=== PATIENT | male | born 1935 | race Caucasian/White ===

== ENCOUNTER 2018-04-24 17:22 | Inpatient (IN) | END 2018-05-05 16:40 | disposition home health service (06) | DRG 163 ==

== ENCOUNTER 2018-07-13 13:41 | Inpatient (IN) | payer MEDICARE, OTHER ==
[~2018-07-13] VITALS: Ht 167.6 cm; Wt 60.0 kg
[~2018-07-13 13:41] MED LIST: AMLO5TAB4 PO; IBUP-1542 PO; OLME20TA20 PO; PARO40TA79 PO; TAMS0.4C2 PO; VILA20TA PO
[2018-07-13] MEDS ORDERED: ONDANSETRON 4 MG INJ IV PRN ×2 (17:00)
[2018-07-13] MEDS ORDERED: HYDROCODONE/APAP (5/325) TAB PO PRN (17:00)
[2018-07-13] MEDS ORDERED: LABETALOL HCL 20MG INJ IV PRN (17:00)
[2018-07-13] MEDS ORDERED: ACETAMINOPHEN 325 MG TAB PO PRN ×2 (17:00)
[2018-07-13] MEDS ORDERED: NACL 0.9% 3 ML SYG IV SCH (17:00)
--- NOTE | 2018-07-13 17:54 | HP ---
Date/Time of Note Date/Time of Note DATE: 07/13/18 TIME: 17:54 Assessment/Plan VTE Prophylaxis Pharmacological prophylaxis: other Lines/Catheters [facility]from [facility] Saline Lock Assessment/Plan Hospital Course Objective Physical exam General: Patient is laying in bed and answers questions appropriately Mentation: Patient is alert and oriented 4, Head: Normocephalic atraumatic Eyes: EOMI, pupils reactive to light Neck: Supple, nontender, midline Respiratory: Clear to auscultation bilaterally Cardiovascular: regular rate, no obvious murmurs Gastrointestinal: non-tender to palpation, bowel sounds heard. Neurological: Moves all extremities spontaneously Skin: No new skin lesions Assessment and plan Syncope -Acute on chronic -Since patient has not had imaging before, will order imaging here -CT head, within normal limits -MRI pending -Echo pending -Ultrasound carotid pending -EEG pending -Neurology consulted Hypertension -Continue home meds Mood disorder -Continue home meds Disposition -Neurology workup pending for syncope. Result Diagram: 07/13/18 1430 07/13/18 1430 Results 24hrs Laboratory Tests Test 07/13/18 14:30 White Blood Count 4.6 #L Red Blood Count 4.70 # Hemoglobin 12.6 #L Hematocrit 39.2 #L Mean Corpuscular Volume 83.4 Mean Corpuscular Hemoglobin 26.8 L Mean Corpuscular Hemoglobin Concent 32.1 Red Cell Distribution Width 17.8 #H Platelet Count 184 # Mean Platelet Volume 12.0 H Immature Granulocytes % 0.700 H Neutrophils % 64.0 Lymphocytes % 19.4 Monocytes % 10.7 Eosinophils % 4.8 Basophils % 0.4 Nucleated Red Blood Cells % 0.0 Immature Granulocytes # 0.030 Neutrophils # 2.9 Lymphocytes # 0.9 Monocytes # 0.5 Eosinophils # 0.2 Basophils # 0.0 Nucleated Red Blood Cells # 0.0 Urine Color YELLOW Urine Clarity CLEAR Urine pH 5.0 Urine Specific [place] 1.017 Urine Ketones NEGATIVE Urine Nitrite NEGATIVE Urine Bilirubin NEGATIVE Urine Urobilinogen 1+ H Urine Leukocyte Esterase NEGATIVE Urine Microscopic RBC 0 Urine Microscopic WBC 1 Urine Hemoglobin NEGATIVE Urine Glucose NEGATIVE Urine Total Protein 1+ H Sodium Level 139 Potassium Level 3.8 Chloride Level 106 Carbon Dioxide Level 23 Anion Gap 10 Blood Urea Nitrogen 17 Creatinine 0.89 Est Glomerular Filtrat Rate mL/min Glucose Level 173 Calcium Level 8.8 Troponin I < 0.012 HPI/ROS Admit Date/Time Admit Date/Time Hx of Present Illness Patient is a elderly male with past medical history significant for VATS decortication last year due to hemothorax due to fall, mood disorder, hypertension who presents to [facility] for multiple episodes of syncope. Patient's family is at bedside to help translate and states that for the past few months approximately 2-3 times a week, patient spontaneously passes out and in a few seconds regains consciousness. Patient has been to his primary care provider before however after a workup that did not include any head imaging, patient still had no answers. Patient states the most recent e vent was today for a few seconds, witnessed by who is also at bedside. Patient currently has no acute complaints and is in good spirits. Patient denies any chest pain, shortness of breath, headache, nausea, vomiting, abdominal pain, leg pain PMH/Family/Social Past Medical History Medications Current Medications Sodium Chloride 1,000 ml @ 60 mls/hr [id number] IV ; Start 07/13/18 at 16:50; Stop 07/15/18 at 02:09 IV Flush (NS 3 ml) 3 ml PER PROTOCOL IV ; Start 07/13/18 at 17:00 Ondansetron HCl (Zofran Inj) 4 mg Q6H PRN IV NAUSEA AND/OR VOMITING; Start 07/13/18 at 17:00 Acetaminophen (Tylenol Tab) 650 mg Q6H PRN PO PAIN LEVEL 1-3 OR FEVER; Start 07/13/18 at 17:00 Acetaminophen/ Hydrocodone Bitart ([place] (5/325)) 1 tab Q6H PRN PO PAIN LEVEL 4-6; Start 07/13/18 at 17:00 Paroxetine HCl (Paxil) 40 mg HS PO ; Start 07/13/18 at 21:00 Tamsulosin HCl (Flomax) 0.8 mg HS PO ; Start 07/13/18 at 21:00 Labetalol HCl (Labetalol) 10 mg Q4H PRN IV sbp >160; Start 07/13/18 at 17:00 Losartan Potassium (Cozaar) 50 mg DAILY PO ; Start 07/14/18 at 09:00 Coded Allergies: No Known Allergy (Unverified , 04/29/18) Past Surgical History Past Surgical Hx: no surgical history Family History Significant Family History: no pertinent family hx Social History Smoking Status: Never smoker Exam/Review of Systems Vital Signs Vitals Vital Signs Date Temp Pulse Resp B/P (MAP) Pulse Ox O2 O2 Flow FiO2 Time Delivery Rate 07/13/18 98.4 79 16 125/68 98 Room Air 16:00 (87) ELIJAH ROBERT Jul 13, 2018 17:54
[2018-07-13 18:32] VITALS: BP 167/79; PULSE 74; RESP 20
[2018-07-13] MEDS: SOD CHLORIDE 0.9% 1,000 ML IV SCH (19:04)
[2018-07-13 19:25] VITALS: BP 142/69; PULSE 76; RESP 20
[2018-07-13 20:00] VITALS: PULSE 86; Ht 167.6 cm; Wt 60.0 kg
--- NOTE | 2018-07-13 22:01 | ERD ---
ER Documentation Chief Complaint Chief Complaint syncope yesterday and today denies cp or sob HPI 83-year-old male presenting after syncopal episode at home. He states he was sitting on the couch when he suddenly felt generally weak and dizzy and passed out. It is unclear how long he was unconscious. He denies any associated chest pain, shortness of breath, headache, vision disturbance, focal weakness or numbness. Currently he states he feels generally weak but otherwise okay. He states that he has had multiple episodes in the past of near syncope which is resolved by drinking cold water. However today that did not work. He states that yesterday he had a similar episode which resolved with drinking cold water. ROS All systems reviewed and are negative except as per history of present illness. Medications Home Meds Active Scripts Ibuprofen* (Ibuprofen*) 600 Mg Tablet, 600 MG PO Q6H PRN for PAIN LEVEL 1-3, #30 TAB Prov:SHEA SCHULTZ 05/03/18 Reported Medications Vilazodone Hcl (Viibryd) 20 Mg Tablet, 20 MG PO DAILY, TAB 04/24/18 Olmesartan Medoxomil (Benicar) 20 Mg Tablet, 20 MG PO DAILY, #30 TAB 04/24/18 Paroxetine Hcl* (Paroxetine*) 40 Mg Tablet, 40 MG PO HS, TAB 04/24/18 Tamsulosin Hcl* (Tamsulosin Hcl*) 0.4 Mg Cap.er.24h, 0.8 MG PO HS, CAP 04/24/18 Amlodipine Besylate* (Norvasc*) 5 Mg Tablet, 5 MG PO DAILY PRN for NEEDED, TAB 04/24/18 Allergies Allergies: Coded Allergies: No Known Allergy (Unverified , 04/29/18) PMhx/Soc History of Surgery: Yes Anesthesia Reaction: No Hx Neurological Disorder: No Hx Respiratory Disorders: Yes Hx Cardiac Disorders: Yes Hx Psychiatric Problems: No Hx Miscellaneous Medical Probl: No Hx Alcohol Use: Yes Hx Substance Use: No Hx Tobacco Use: No Smoking Status: Former smoker FmHx Family History: No diabetes Physical Exam Vitals Vital Signs Date Temp Pulse Resp B/P (MAP) Pulse Ox O2 O2 Flow FiO2 Time Delivery Rate 07/13/18 98.4 79 16 125/68 98 Room Air 16:00 (87) 07/13/18 98.8 90 20 168/67 96 13:47 (100) Physical Exam Const: No acute distress, well-appearing, nontoxic Head: Atraumatic Eyes: Normal Conjunctiva ENT: Normal External Ears, Nose and Mouth. Neck: Full range of motion. No meningismus. Resp: Bibasilar crackles noted, no wheezing Cardio: Regular rate and rhythm, no murmurs. 2+ distal pulses in all 4 extremities Abd: Soft, non tender, non distended. Normal bowel sounds Skin: No petechiae or rashes Back: No midline or flank tenderness Ext: No cyanosis, or edema Neur: Awake and alert, oriented x3, normal speech, no facial asymmetry, strength and sensations intact in all 4 extremities Psych: Normal Mood and Affect Result Diagram: 07/13/18 1430 07/13/18 1430 Results 24 hrs Laboratory Tests Test 07/13/18 14:30 White Blood Count 4.6 10^3/ul Red Blood Count 4.70 10^6/ul Hemoglobin 12.6 g/dl Hematocrit 39.2 % Mean Corpuscular Volume 83.4 fl Mean Corpuscular Hemoglobin 26.8 pg Mean Corpuscular Hemoglobin Concent 32.1 g/dl Red Cell Distribution Width 17.8 % Platelet Count 184 10^3/UL Mean Platelet Volume 12.0 fl Immature Granulocytes % 0.700 % Neutrophils % 64.0 % Lymphocytes % 19.4 % Monocytes % 10.7 % Eosinophils % 4.8 % Basophils % 0.4 % Nucleated Red Blood Cells % 0.0 /100WBC Immature Granulocytes # 0.030 10^3/ul Neutrophils # 2.9 10^3/ul Lymphocytes # 0.9 10^3/ul Monocytes # 0.5 10^3/ul Eosinophils # 0.2 10^3/ul Basophils # 0.0 10^3/ul Nucleated Red Blood Cells # 0.0 10^3/ul Urine Color YELLOW Urine Clarity CLEAR Urine pH 5.0 Urine Specific [place] 1.017 Urine Ketones NEGATIVE mg/dL Urine Nitrite NEGATIVE mg/dL Urine Bilirubin NEGATIVE mg/dL Urine Urobilinogen 1+ mg/dL Urine Leukocyte Esterase NEGATIVE Radha/ul Urine Microscopic RBC 0 /HPF Urine Microscopic WBC 1 /HPF Urine Hemoglobin NEGATIVE mg/dL Urine Glucose NEGATIVE mg/dL Urine Total Protein 1+ mg/dl Sodium Level 139 mmol/L Potassium Level 3.8 mmol/L Chloride Level 106 mmol/L Carbon Dioxide Level 23 mmol/L Anion Gap 10 Blood Urea Nitrogen 17 mg/dl Creatinine 0.89 mg/dl Est Glomerular Filtrat Rate mL/min mL/min Glucose Level 173 mg/dl Calcium Level 8.8 mg/dl Troponin I < 0.012 ng/ml Current Medications Medications Dose Sig/Radha Start Time Status Last (Trade) Ordered Route PRN Stop Time Admin Dose Reason Admin Sodium 1,000 ml @ [id number] IV 07/13/18 07/13/18 Chloride 60 mls/hr 16:50 07/15/18 19:04 02:09 Procedures/MDM EMERGENT LABS AND DIAGNOSTIC STUDIES: Lab Results above were reviewed and interpreted by me. CBC: no anemia or evidence of infection BMP: No evidence of electrolyte abnormality, renal failure, hypoglycemia Troponin within normal limits, not indicative of cardiac ischemia 12-lead EKG was interpreted by Chary Presley MD: Normal Sinus Rhythm Normal axis Normal intervals No Arrhythmia, No acute ST or T wave changes suggestive of acute ischemia or STEMI. Radiology Results as interpreted by Radiology below were reviewed by Taj ramirez MD: CXR: Mild bibasilar airspace disease which may represent atelectasis versus infiltrates. Initial Nursing notes reviewed. Previous Medical Records requested via the Electronic Health Record. EMERGENCY DEPARTMENT COURSE / MEDICAL DECISION MAKING: The patient presented after a syncopal episode. Differential includes but is not limited to cardiac arrhythmia or ischemia, pulmonary embolism, vasovagal syncope, situational syncope, dehydration with orthostatic hypotension, hemorrhage, sepsis, stroke ,ICH, hypoglycemia. I have a low suspicion for seizure, stroke, or serious head injury. Blood sugar was normal. EKG showed [no significant arrhythmia or ischemia]. Labs were unremarkable. Chest Xray showed atelectasis. Given the patients medical history and risk factors, occult etiology such as fatal dysrhythmia cannot be ruled out. I do not believe patient is safe for discharge and will need admission for telemetry monitoring and further workup. Accepting Care Team: Current data and ongoing care discussed. Time: Time of admission Primary Provider: Dr. Richard Almaraz Diagnosis: Primary Impression: Syncope Syncope type: unspecified Qualified Codes: R55 - Syncope and collapse Condition: Fair EMMA PRESLEY MD Jul 13, 2018 22:01
[2018-07-13] MEDS: TAMSULOSIN (SR) 0.4 MG CAP PO SCH (23:03)
[2018-07-13] MEDS: PAROXETINE 20 MG TAB PO SCH (23:03)
[2018-07-13 23:18] VITALS: BP 130/60; PULSE 75; RESP 20
[2018-07-14] VITALS (13 sets, daily range): BP systolic 131–169; BP diastolic 66–76; PULSE 68–85; RESP 20
[2018-07-14] MEDS: LOSARTAN 50 MG TAB PO SCH (09:22)
[2018-07-14] MEDS: SOD CHLORIDE 0.9% 1,000 ML IV SCH (10:43)
--- NOTE | 2018-07-14 14:03 | PN ---
Date/Time of Note Date/Time of Note DATE: 07/14/18 TIME: 13:59 Assessment/Plan VTE Prophylaxis Risk score (from Ns)>0 risk: 5 SCD applied (from Ns): No SCD contraindicated: low risk/ambulating Pharmacological prophylaxis: LMWH Lines/Catheters IV Catheter Type (from [place]): Peripheral IV Assessment/Plan Hospital Course Assessment and plan 1. Syncope, ukn etiol check orthostatics. Rule out arrhythmia 2. Chronic BPH on Flomax 3. Chronic hypertension 4. Chronic major depression 5. Past tobacco S: Recurrent syncope. Doesnt happen while ambulating/ out of the house? since prior episodes he has been essentially at home. Yesterday's event was witnessed by the granddaughter while he was sitting on the couch. Apparently said he was not feeling well and collapsed to one side/ turn pale. There was no witnessed seizure incontinence tongue bite injury. There is no chest pain or palpitations headache. He was able to stand on his own, afterwards. presently awake alert follows commands no distress. Does have a nonproductive cough and so it is his at bedside Objective: Vital signs stable sinus rhythm Physical exam No pallor adenopathy droop no carotid bruits Regular no murmur gallop Clear Benign No edema Neuro: Grossly nonfocal Result Diagram: 07/14/18 0525 07/14/18 0525 Results 24hrs Laboratory Tests Test 07/13/18 14:30 07/14/18 05:25 White Blood Count 4.6 #L 5.5 Red Blood Count 4.70 # 4.34 L Hemoglobin 12.6 #L 11.3 L Hematocrit 39.2 #L 36.6 L Mean Corpuscular Volume 83.4 84.3 Mean Corpuscular Hemoglobin 26.8 L 26.0 L Mean Corpuscular Hemoglobin Concent 32.1 30.9 L Red Cell Distribution Width 17.8 #H 17.8 H Platelet Count 184 # 176 Mean Platelet Volume 12.0 H 12.5 H Immature Granulocytes % 0.700 H 0.400 Neutrophils % 64.0 62.7 Lymphocytes % 19.4 19.3 Monocytes % 10.7 11.7 H Eosinophils % 4.8 5.3 Basophils % 0.4 0.6 Nucleated Red Blood Cells % 0.0 0.0 Immature Granulocytes # 0.030 0.020 Neutrophils # 2.9 3.4 Lymphocytes # 0.9 1.1 Monocytes # 0.5 0.6 Eosinophils # 0.2 0.3 Basophils # 0.0 0.0 Nucleated Red Blood Cells # 0.0 0.0 Urine Color YELLOW Urine Clarity CLEAR Urine pH 5.0 Urine Specific [place] 1.017 Urine Ketones NEGATIVE Urine Nitrite NEGATIVE Urine Bilirubin NEGATIVE Urine Urobilinogen 1+ H Urine Leukocyte Esterase NEGATIVE Urine Microscopic RBC 0 Urine Microscopic WBC 1 Urine Hemoglobin NEGATIVE Urine Glucose NEGATIVE Urine Total Protein 1+ H Sodium Level 139 144 Potassium Level 3.8 4.0 Chloride Level 106 107 Carbon Dioxide Level 23 27 Anion Gap 10 10 Blood Urea Nitrogen 17 17 Creatinine 0.89 0.93 Est Glomerular Filtrat Rate mL/min Glucose Level 173 107 # Calcium Level 8.8 8.9 Troponin I < 0.012 Hemoglobin A1c 5.3 Magnesium Level 2.0 Total Bilirubin 0.1 L Direct Bilirubin 0.00 Indirect Bilirubin 0.1 Aspartate Amino Transf (AST/SGOT) 16 Alanine Aminotransferase (ALT/SGPT) 26 Alkaline Phosphatase 65 Total Protein 6.0 L Albumin 3.3 Globulin 2.70 Albumin/Globulin Ratio 1.22 Thyroid Stimulating Hormone (TSH) 0.934 Exam/Review of Systems Vital Signs Vitals Vital Signs Date Temp Pulse Resp B/P (MAP) Pulse Ox O2 O2 Flow FiO2 Time Delivery Rate 07/14/18 79 12:00 07/14/18 98.3 20 158/72 90 11:14 (100) 07/13/18 Room Air 18:30 Intake and Output 07/13/18 07/13/18 07/14/18 1515:00 23:00 07:00 IntakeIntake Total 300 ml OutputOutput Total 500 ml BalanceBalance -200 ml Medications Medications Current Medications Sodium Chloride 1,000 ml @ 60 mls/hr [id number] IV Last administered on 07/14/18at 10:43; Admin Dose 60 MLS/HR; Start 07/13/18 at 16:50; Stop 07/15/18 at 02:09 IV Flush (NS 3 ml) 3 ml PER PROTOCOL IV ; Start 07/13/18 at 17:00 Ondansetron HCl (Zofran Inj) 4 mg Q6H PRN IV NAUSEA AND/OR VOMITING; Start 07/13/18 at 17:00 Acetaminophen (Tylenol Tab) 650 mg Q6H PRN PO PAIN LEVEL 1-3 OR FEVER; Start 07/13/18 at 17:00 Acetaminophen/ Hydrocodone Bitart ([place] (5/325)) 1 tab Q6H PRN PO PAIN LEVEL 4-6 Last administered on 07/14/18at 01:33; Admin Dose 1 TAB; Start 07/13/18 at 17:00 Paroxetine HCl (Paxil) 40 mg HS PO Last administered on 07/13/18at 23:03; Admin Dose 40 MG; Start 07/13/18 at 21:00 Tamsulosin HCl (Flomax) 0.8 mg HS PO Last administered on 07/13/18at 23:03; Admin Dose 0.8 MG; Start 07/13/18 at 21:00 Labetalol HCl (Labetalol) 10 mg Q4H PRN IV sbp >160; Start 07/13/18 at 17:00 Losartan Potassium (Cozaar) 50 mg DAILY PO Last administered on 07/14/18at 09:22; Admin Dose 50 MG; Start 07/14/18 at 09:00 DESIREE HOGAN MD Jul 14, 2018 14:03
[2018-07-14] MEDS ORDERED: GUAIFENESIN/DM 5ML CUP PO PRN (14:30)
[2018-07-14] MEDS ORDERED: ALBUTEROL HFA 8 GM INHALER INH PRN (14:30)
--- NOTE | 2018-07-14 15:18 | RADRPT ---
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 Physician: ELIJAH ROBERT Quality: Adequate Procedures: Transthoracic echocardiogram with complete 2D, M-Mode, and doppler examination. Indications: Syncope. 2D/M Mode Doppler Measurement Value Normal Ranges Measurement Value Normal Ranges LVIDd 2D 4.8 3.5 - 5.6 cm AV Peak Daljit 1.7 m/sec LVIDs 2D 3.3 2.1 - 4.1 cm AV Peak PG 12.0 mmHg LVPWd 2D 1.0 0.6 - 1.1 cm LVOT Peak Daljit 0.9 m/sec IVSd 2D 1.1 0.6 - 1.1 cm LVOT Peak PG 3.0 mmHg AoR Diam 2D 3.3 2.0 - 3.7 cm MV E Peak Daljit 0.8 m/sec LA/Ao 2D 1 0 - 1 MV A Peak Daljit 1.1 m/sec LA Dimen 2D 4.2 2.3 - 4.0 cm MV E/A 0.7 MV PHT 56.0 msec MV Decel Time 190 msec MV Decel [place] 4 Lat E` Daljit 0.1 m/sec Lateral E/E` 8.6 Med E` Daljit 0.1 m/sec MV E/A 0.7 MV PHT 56.0 msec MVA PHT 3.9 cm2 TR Peak Daljit 2.6 m/sec TR Peak PG 27.0 mmHg PV Peak Daljit 1.2 m/sec PV Peak PG 6.0 mmHg RVSP 37.0 mmHg Findings Left Ventricle: Normal left ventricular systolic function. Normal left ventricular cavity size. Mild hypertrophy of the basal septum. Ejection fraction is visually estimated at 65 %. Tissue Doppler/Mitral Doppler indices are consistent with impaired relaxation (Stage I diastolic dysfunction). E/E`=12. Right Ventricle: Normal right ventricular size. Normal right ventricular systolic function. Left Atrium: There is mild enlargement of left atrium. Right Atrium: The right atrium is normal in size. Atrial Septum: Normal atrial septum. Ventricular septum: Normal/intact ventricular septum. Mitral Valve: Normal appearance of the mitral valve. Trace mitral regurgitation. Aortic Valve: No significant aortic stenosis or insufficiency. Aortic cusps appear mildly calcified. Left coronary cusp appears moderately calcified. Trileaflet aortic valve. Trace aortic valve regurgitation. Tricuspid Valve: Normal appearance of the tricuspid valve. Estimated peak PA systolic pressure 37 mmHg. There is trace to mild tricuspid regurgitation. Pulmonic Valve: Pulmonic valve not well visualized. There is trace pulmonic regurgitation. Pericardium: Normal pericardium with no significant pericardial effusion. Aorta: Normal aortic root. IVC: Normal size and normal respiratory collapse consistent with normal right atrial pressure. Pulmonary Artery: Normal pulmonary artery size. Conclusions Normal left ventricular systolic function. Normal left ventricular cavity size. Mild hypertrophy of the basal septum. Ejection fraction is visually estimated at 65 %. Tissue Doppler/Mitral Doppler indices are consistent with impaired relaxation (Stage I diastolic dysfunction). E/E`=12. No significant aortic stenosis or insufficiency. Aortic cusps appear mildly calcified. Left coronary cusp appears moderately calcified. Trileaflet aortic valve. Trace aortic valve regurgitation. Normal appearance of the tricuspid valve. Estimated peak PA systolic pressure 37 mmHg. There is trace to mild tricuspid regurgitation. Normal appearance of the mitral valve. Trace mitral regurgitation. Electronically Signed By: Brice Garner 14-Jul-2018 15:18:36 -0800 Patient Name: JELLY BRICEÑO Study Date: 14-Jul-2018 [id number]
[2018-07-14] MEDS: GUAIFENESIN/DM (SR) TAB PO SCH ×2 (15:19→21:26)
[2018-07-14] MEDS: PAROXETINE 20 MG TAB PO SCH (21:25)
[2018-07-14] MEDS: TAMSULOSIN (SR) 0.4 MG CAP PO SCH (21:26)
[2018-07-15] VITALS (12 sets, daily range): BP systolic 147–159; BP diastolic 66–77; PULSE 67–82; RESP 18–21
[2018-07-15] MEDS: LOSARTAN 50 MG TAB PO SCH (08:26)
[2018-07-15] MEDS: GUAIFENESIN/DM (SR) TAB PO SCH ×2 (08:26→20:06)
--- NOTE | 2018-07-15 12:19 | CONS ---
Assessment/Plan Assessment/Plan Hospital Course 83 yo M with hx of repeated syncopal episodes and other comorbidities who presents following a witnessed episode of a transient loss of consciousness... for which neurology is consulted. Clinically consistent with syncope. Seizure is additionally considered, though less likely. MRI brain is without acute intracranial pathology. P: Await EEG to evaluate for epileptiform activity Await orthostatics Cont workup and medical management per primary Reorient as necessary Limit sedating medications where possible PT/OT as tolerated Will follow clinically Result Diagram: 07/15/1851107/15/18511 Results 24hrs Laboratory Tests Test 07/14/18 15:40 07/15/18 05:12 Stool Occult Blood NEGATIVE White Blood Count 5.4 Red Blood Count 4.47 L Hemoglobin 11.7 L Hematocrit 37.9 L Mean Corpuscular Volume 84.8 Mean Corpuscular Hemoglobin 26.2 L Mean Corpuscular Hemoglobin Concent 30.9 L Red Cell Distribution Width 17.8 H Platelet Count 165 Mean Platelet Volume 11.7 H Immature Granulocytes % 0.200 Neutrophils % 67.2 Lymphocytes % 15.0 Monocytes % 12.4 H Eosinophils % 4.6 Basophils % 0.6 Nucleated Red Blood Cells % 0.0 Immature Granulocytes # 0.010 Neutrophils # 3.6 Lymphocytes # 0.8 Monocytes # 0.7 Eosinophils # 0.3 Basophils # 0.0 Nucleated Red Blood Cells # 0.0 Prothrombin Time 12.6 Prothrombin Time Ratio 1.0 INR International Normalized Ratio 0.93 Sodium Level 141 Potassium Level 3.9 Chloride Level 108 Carbon Dioxide Level 24 Anion Gap 9 Blood Urea Nitrogen 19 Creatinine 0.91 Est Glomerular Filtrat Rate mL/min Glucose Level 108 Calcium Level 8.9 Magnesium Level 2.0 Iron Level 39 Total Iron Binding Capacity 353 Percent Iron Saturation 11 L Ferritin 23.1 Total Bilirubin 0.1 L Direct Bilirubin 0.00 Indirect Bilirubin 0.1 Aspartate Amino Transf (AST/SGOT) 17 Alanine Aminotransferase (ALT/SGPT) 23 Alkaline Phosphatase 76 Troponin I < 0.012 Total Protein 6.6 Albumin 3.7 Globulin 2.90 Albumin/Globulin Ratio 1.27 Consultation Date/Type/Reason Admit Date/Time Type of Consult Neurology Reason for Consultation syncope Requesting Provider: ELIJAH ROBERT Date/Time of Note DATE: 07/15/18 TIME: 12:19 Hx of Present Illness This is an 83 yo M with hx of multiple syncopal episodes, HTN, mood disorder NOS, VATS procedure last year who presented to the ED after a witnessed syncopal episode. History was obtained from family at bedside and chart review as pt is a limited historian. It is elsewhere noted: Hx of Present Illness Patient is a elderly male with past medical history significant for VATS decortication last year due to hemothorax due to fall, mood disorder, hypertension who presents to [facility] for multiple episodes of syncope. Patient's family is at bedside to help translate and states that for the past few months approximately 2-3 times a week, patient spontaneously passes out and in a few seconds regains consciousness. Patient has been to his primary care provider before however after a workup that did not include any head imaging, patient still had no answers. Patient states the most recent event was today for a few seconds, witnessed by who is also at bedside. Patient currently has no acute complaints and is in good spirits. Patient denies any chest pain, shortness of breath, headache, nausea, vomiting, abdominal pain, leg pain negative unless noted otherwise in HPI Exam/Review of Systems Vital Signs Vitals Vital Signs Date Temp Pulse Resp B/P (MAP) Pulse Ox O2 O2 Flow FiO2 Time Delivery Rate 07/15/18 97.6 78 18 157/75 95 11:53 (102) 07/13/18 Room Air 18:30 Intake and Output 07/14/18 07/14/18 07/15/18 1515:00 23:00 07:00 IntakeIntake Total 480 ml 800 ml OutputOutput Total 600 ml BalanceBalance 480 ml 200 ml Exam PE: Gen Appearance: No Apparent Distress HEENT: Normocephalic Cardiovascular: Regular rate Abdomen: Soft Extremities: Dry NE: The patient was alert and oriented. Language was normal. Fund of knowledge was adequate. Pupils were equal and reactive to light. There was no afferent pupillary defect. Visual gayle were normal. Funduscopic examination was limited. Extra-ocular movements were full. Ptosis was absent. There was no nystagmus. Facial sensation was normal. Face was symmetric with normal strength. Hearing was intact. Palate movements were normal. Neck strength was normal. There was normal tongue bulk and speed of movement. Tone was normal. Muscle bulk was normal. I did not see fasciculations. Arms and legs were antigravity. Vibration sensation was normal. Temperature and pinprick sensation was normal. Rapid alternating movements were normal. There was no dysmetria. There was no intention tremor. Gait was deferred due to bedrest. Arm and leg reflexes were 2+ and symmetric. Michaud's sign was absent. Plantar responses were flexor. Medications Medications Current Medications IV Flush (NS 3 ml) 3 ml PER PROTOCOL IV ; Start 07/13/18 at 17:00 Ondansetron HCl (Zofran Inj) 4 mg Q6H PRN IV NAUSEA AND/OR VOMITING; Start 07/13 at 17:00 Acetaminophen (Tylenol Tab) 650 mg Q6H PRN PO PAIN LEVEL 1-3 OR FEVER; Start 07/13/18 at 17:00 Acetaminophen/ Hydrocodone Bitart ([place] (5/325)) 1 tab Q6H PRN PO PAIN LEVEL 4-6 Last administered on 07/14/18at 01:33; Admin Dose 1 TAB; Start 07/13/18 at 17:00 Paroxetine HCl (Paxil) 40 mg HS PO Last administered on 07/14/18at 21:25; Admin Dose 40 MG; Start 07/13/18 at 21:00 Tamsulosin HCl (Flomax) 0.8 mg HS PO Last administered on 07/14/18 21:26; Admin Dose 0.8 MG; Start 07/13/18 at 21:00 Labetalol HCl (Labetalol) 10 mg Q4H PRN IV sbp >160; Start 07/13/18 at 17:00 Losartan Potassium (Cozaar) 50 mg DAILY PO Last administered on 07/15/18at 08:26; Admin Dose 50 MG; Start 07/14/18 at 09:00 Guaifenesin/ Dextromethorphan (Mucinex Dm) 1 tab BID PO Last administered on 07/15/18 08:26; Admin Dose 1 TAB; Start 07/14/18 at 14:30 Albuterol (Ventolin Hfa) 2 puff Q4H RESP THERAPY PRN INH SHORTNESS OF BREATH; Start 07/14/18 at 14:30 Guaifenesin/ Dextromethorphan (Robitussin Dm Liquid Cup) 10 ml Q4H PRN PO COUGH; Start 07/14/18 at 14:30 Imaging Imaging MRI brain: IMPRESSION: 1. The intracranial contents are without significant interval change compared to the patient's prior MRI study from July 31, 2017. 2. Mild diffuse atrophy. 3. Microangiopathic ischemic changes. 4. Mild mucosal thickening right ethmoid air cells CTH reviewed: IMPRESSION: Mild age-appropriate atrophy. Minimal white matter disease compatible with chronic small vessel ischemia. No intracranial hemorrhage, mass or evidence of acute transcortical infarct. Past Medical History reviewed Medications Current Medications IV Flush (NS 3 ml) 3 ml PER PROTOCOL IV ; Start 07/13/18 at 17:00 Ondansetron HCl (Zofran Inj) 4 mg Q6H PRN IV NAUSEA AND/OR VOMITING; Start 07/13/18 at 17:00 Acetaminophen (Tylenol Tab) 650 mg Q6H PRN PO PAIN LEVEL 1-3 OR FEVER; Start 07/13/18 at 17:00 Acetaminophen/ Hydrocodone Bitart ([place] (5/325)) 1 tab Q6H PRN PO PAIN LEVEL 4-6 Last administered on 07/14/18at 01:33; Admin Dose 1 TAB; Start 07/13/18 at 17:00 Paroxetine HCl (Paxil) 40 mg HS PO Last administered on 07/14/18at 21:25; Admin Dose 40 MG; Start 07/13/18 at 21:00 Tamsulosin HCl (Flomax) 0.8 mg HS PO Last administered on 07/14/18at 21:26; Admin Dose 0.8 MG; Start 07/13/18 at 21:00 Labetalol HCl (Labetalol) 10 mg Q4H PRN IV sbp >160; Start 07/13/18 at 17:00 Losartan Potassium (Cozaar) 50 mg DAILY PO Last administered on 07/15/18at 08:26; Admin Dose 50 MG; Start 07/14/18 at 09:00 Guaifenesin/ Dextromethorphan (Mucinex Dm) 1 tab BID PO Last administered on 07/15/18at 08:26; Admin Dose 1 TAB; Start 07/14/18 at 14:30 Albuterol (Ventolin Hfa) 2 puff Q4H RESP THERAPY PRN INH SHORTNESS OF BREATH; Start 07/14/18 at 14:30 Guaifenesin/ Dextromethorphan (Robitussin Dm Liquid Cup) 10 ml Q4H PRN PO COUGH; Start 07/14/18 at 14:30 Allergies: Coded Allergies: No Known Allergy (Unverified , 04/29/18) Past Surgical History reviewed Past Surgical Hx: no surgical history Social History reviewed Smoking Status: Former smoker NETTIE PATIÑO NP Jul 15, 2018 12:19
--- NOTE | 2018-07-15 13:38 | PN ---
Date/Time of Note Date/Time of Note DATE: 07/15/18 TIME: 13:34 Assessment/Plan VTE Prophylaxis Risk score (from Ns)>0 risk: 5 SCD applied (from [facility] [place]): No SCD contraindicated: other Pharmacological prophylaxis: LMWH Lines/Catheters IV Catheter Type (from [facility]): Peripheral IV Assessment/Plan Hospital Course SUBJECTIVE: Denies any complaints. OBJECTIVE: Physical Exam General: Adequately build 83 year-old male lying in bed in no apparent distress. HEENT: Normocephalic, atraumatic. Eyes: Anicteric sclerae, conjunctivae clear. ENT: Nasal septum midline, oral mucosa moist. Neck supple. Respiratory: Bilaterally managed breath sounds. No use of accessory muscles of respiration. No adventitious breath sounds. Cardiovascular: S1, S2 heard. Regular rate and rhythm. Abdomen: Soft, nontender, and nondistended. Bowel sounds positive in all 4 quadrants. Genitourinary: Deferred. Extremities: No cyanosis, no clubbing, no edema. Peripheral pulses palpable. Neurologic: The patient is awake, alert, and oriented. Skin: Normal skin turgor. No skin rashes. Labs & Vitals per chart ASSESSMENT & PLAN 83-year-old male with a past medical history of hypertension, depression, and BPH who came to the, emergency room because he had a syncopal episode. Patient was admitted to inpatient setting for further treatment and evaluation. 1. Syncope. -Etiology unclear. -Brain MRI and brain CT negative. -2D echocardiogram negative for any significant findings. -Being followed by neurology. Electroencephalography pending. -Obtain orthostatic vital signs. 2. Essential hypertension. -Continue antihypertensives. 3. Benign prostatic hypertrophy. -Continue Flomax. 4. Depression. -Continue SSRI. 5. Normocytic anemia. -Probably anemia of chronic disease. -Monitor H&H closely. 6. Fluids, electrolytes, and nutrition. -Low-cholesterol diet. 7. DVT prophylaxis. -Bilateral SCDs. -SQ Lovenox. 8. Plan. -Continue telemetry monitoring. -Await further neurology recommendations. The patient was seen in collaboration with Dr. Gallego. Result Diagram: 07/15/1851107/15/18 0512 Results 24hrs Laboratory Tests Test 07/14/18 15:40 07/15/18 05:12 Stool Occult Blood NEGATIVE White Blood Count 5.4 Red Blood Count 4.47 L Hemoglobin 11.7 L Hematocrit 37.9 L Mean Corpuscular Volume 84.8 Mean Corpuscular Hemoglobin 26.2 L Mean Corpuscular Hemoglobin Concent 30.9 L Red Cell Distribution Width 17.8 H Platelet Count 165 Mean Platelet Volume 11.7 H Immature Granulocytes % 0.200 Neutrophils % 67.2 Lymphocytes % 15.0 Monocytes % 12.4 H Eosinophils % 4.6 Basophils % 0.6 Nucleated Red Blood Cells % 0.0 Immature Granulocytes # 0.010 Neutrophils # 3.6 Lymphocytes # 0.8 Monocytes # 0.7 Eosinophils # 0.3 Basophils # 0.0 Nucleated Red Blood Cells # 0.0 Prothrombin Time 12.6 Prothrombin Time Ratio 1.0 INR International Normalized Ratio 0.93 Sodium Level 141 Potassium Level 3.9 Chloride Level 108 Carbon Dioxide Level 24 Anion Gap 9 Blood Urea Nitrogen 19 Creatinine 0.91 Est Glomerular Filtrat Rate mL/min Glucose Level 108 Calcium Level 8.9 Magnesium Level 2.0 Iron Level 39 Total Iron Binding Capacity 353 Percent Iron Saturation 11 L Ferritin 23.1 Total Bilirubin 0.1 L Direct Bilirubin 0.00 Indirect Bilirubin 0.1 Aspartate Amino Transf (AST/SGOT) 17 Alanine Aminotransferase (ALT/SGPT) 23 Alkaline Phosphatase 76 Troponin I < 0.012 Total Protein 6.6 Albumin 3.7 Globulin 2.90 Albumin/Globulin Ratio 1.27 Exam/Review of Systems Vital Signs Vitals Vital Signs Date Temp Pulse Resp B/P (MAP) Pulse Ox O2 O2 Flow FiO2 Time Delivery Rate 07/15/18 77 12:52 07/15/18 97.6 18 157/75 95 11:53 (102) 07/13/18 Room Air 18:30 Intake and Output 07/14/18 07/14/18 07/15/18 1515:00 23:00 07:00 IntakeIntake Total 480 ml 800 ml OutputOutput Total 600 ml BalanceBalance 480 ml 200 ml Medications Medications Current Medications IV Flush (NS 3 ml) 3 ml PER PROTOCOL IV ; Start 07/13/18 at 17:00 Ondansetron HCl (Zofran Inj) 4 mg Q6H PRN IV NAUSEA AND/OR VOMITING; Start 07/13/18 at 17:00 Acetaminophen (Tylenol Tab) 650 mg Q6H PRN PO PAIN LEVEL 1-3 OR FEVER; Start 07/13/18 at 17:00 Acetaminophen/ Hydrocodone Bitart ([place] (5/325)) 1 tab Q6H PRN PO PAIN LEVEL 4-6 Last administered on 07/14/18 01:33; Admin Dose 1 TAB; Start 07/13/18 at 17:00 Paroxetine HCl (Paxil) 40 mg HS PO Last administered on 07/14/18 21:25; Admin Dose 40 MG; Start 07/13/18 at 21:00 Tamsulosin HCl (Flomax) 0.8 mg HS PO Last administered on 07/14/18 21:26; Admin Dose 0.8 MG; Start 07/13/18 at 21:00 Labetalol HCl (Labetalol) 10 mg Q4H PRN IV sbp >160; Start 07/13/18 at 17:00 Losartan Potassium (Cozaar) 50 mg DAILY PO Last administered on 07/15/18 08:26; Admin Dose 50 MG; Start 07/14/18 at 09:00 Guaifenesin/ Dextromethorphan (Mucinex Dm) 1 tab BID PO Last administered on 07/15/18 08:26; Admin Dose 1 TAB; Start 07/14/18 at 14:30 Albuterol (Ventolin Hfa) 2 puff Q4H RESP THERAPY PRN INH SHORTNESS OF BREATH; Start 07/14/18 at 14:30 Guaifenesin/ Dextromethorphan (Robitussin Dm Liquid Cup) 10 ml Q4H PRN PO COUGH; Start 07/14/18 at 14:30 DENNY SHORT NP Jul 15, 2018 13:38
--- NOTE | 2018-07-15 19:44 | EEG ---
EEG NOTE Report Details DATE OF TEST: 07/15/17 HISTORY: The patient is a 83-year-old M who presents following LOC. This EEG is requested to evaluate for an epileptic disorder. SEDATION: None. CONDITIONS OF RECORDING: This EEG was recorded digitally on the Quest[employer] machine, using the International 10-20 System of electrodes plus anterior temporals and [place]. STATES SAMPLED: Wakefulness and drowsiness. FINDINGS: Technically limited by high frequency artifact.. During wakefulness, there is a 10-11 Hz posterior dominant rhythm, which attenuates normally with eye opening. There is a normal [id number] frequency-amplitude gradient. Photic stimulation does not elicit any definite driving responses or epileptiform discharges. Hyperventilation was not performed. The patient became drowsy but did not pass into sleep. No asymmetries, focal abnormalities or epileptiform discharges were seen. IMPRESSION: Technically limited by high frequency artifact; no epileptiform discharges are seen. TREVIN GRAFF Jul 15, 2018 19:44
[2018-07-15] MEDS: TAMSULOSIN (SR) 0.4 MG CAP PO SCH (20:06)
[2018-07-15] MEDS: PAROXETINE 20 MG TAB PO SCH (20:07)
[2018-07-16] VITALS (20 sets, daily range): BP systolic 113–153; BP diastolic 56–71; PULSE 69–89; RESP 18–20
[2018-07-16] MEDS: GUAIFENESIN/DM (SR) TAB PO SCH ×2 (09:06→20:16)
[2018-07-16] MEDS: LOSARTAN 50 MG TAB PO SCH (09:06)
[2018-07-16] MEDS: ENOXAPARIN 40 MG/0.4 ML SYG SC SCH (09:29)
--- NOTE | 2018-07-16 15:13 | PN ---
Date/Time of Note Date/Time of Note DATE: 07/16/18 TIME: 15:12 Assessment/Plan VTE Prophylaxis Risk score (from Ns)>0 risk: 7 SCD applied (from [facility] [place]): No SCD contraindicated: other Pharmacological prophylaxis: LMWH Lines/Catheters IV [facility] ([facility]): Peripheral IV Assessment/Plan Hospital Course SUBJECTIVE: Denies any complaints. OBJECTIVE: Physical Exam General: Adequately build 83 year-old male lying in bed in no apparent distress. HEENT: Normocephalic, atraumatic. Eyes: Anicteric sclerae, conjunctivae clear. ENT: Nasal septum midline, oral mucosa moist. Neck supple. Respiratory: Bilaterally managed breath sounds. No use of accessory muscles of respiration. No adventitious breath sounds. Cardiovascular: S1, S2 heard. Regular rate and rhythm. Abdomen: Soft, nontender, and nondistended. Bowel sounds positive in all 4 quadrants. Genitourinary: Deferred. Extremities: No cyanosis, no clubbing, no edema. Peripheral pulses palpable. Neurologic: The patient is awake, alert, and oriented. Skin: Normal skin turgor. No skin rashes. Labs & Vitals per chart ASSESSMENT & PLAN 83-year-old male with a past medical history of hypertension, depression, and BPH who came to the, emergency room because he had a syncopal episode. Patient was admitted to inpatient setting for further treatment and evaluation. 1. Syncope. -Etiology unclear. -Brain MRI and brain CT negative. -2D echocardiogram negative for any significant findings. -Being followed by neurology. Electroencephalography neagtive for any epileptiform activities. -Obtain cardiology evaluation. . 2. Essential hypertension. -Continue antihypertensives. 3. Benign prostatic hypertrophy. -Continue Flomax. 4. Depression. -Continue SSRI. 5. Normocytic anemia. -Probably anemia of chronic disease. -Monitor H&H closely. 6. Fluids, electrolytes, and nutrition. -Low-cholesterol diet. 7. DVT prophylaxis. -SQ Lovenox. 8. Plan. -Continue telemetry monitoring. -Await further neurology recommendations. -Obtain cardiology evaluation. The patient was seen in collaboration with Dr. Gallego. Result Diagram: 07/16/18 0453 07/16/18 0453 Results 24hrs Laboratory Tests Test 07/16/18 04:53 White Blood Count 5.9 Red Blood Count 4.57 L Hemoglobin 11.8 L Hematocrit 38.1 L Mean Corpuscular Volume 83.4 Mean Corpuscular Hemoglobin 25.8 L Mean Corpuscular Hemoglobin Concent 31.0 L Red Cell Distribution Width 18.2 H Platelet Count 169 Mean Platelet Volume 11.9 H Immature Granulocytes % 0.300 Neutrophils % 67.5 Lymphocytes % 14.0 L Monocytes % 14.2 H Eosinophils % 3.7 Basophils % 0.3 Nucleated Red Blood Cells % 0.0 Immature Granulocytes # 0.020 Neutrophils # 4.0 Lymphocytes # 0.8 Monocytes # 0.8 Eosinophils # 0.2 Basophils # 0.0 Nucleated Red Blood Cells # 0.0 Sodium Level 141 Potassium Level 3.9 Chloride Level 107 Carbon Dioxide Level 26 Anion Gap 8 Blood Urea Nitrogen 18 Creatinine 0.92 Est Glomerular Filtrat Rate mL/min Glucose Level 107 Calcium Level 9.0 Phosphorus Level 3.4 Magnesium Level 2.0 Exam/Review of Systems Vital Signs Vitals Vital Signs Date Temp Pulse Resp B/P (MAP) Pulse Ox O2 O2 Flow FiO2 Time Delivery Rate 07/16/18 98.4 77 18 126/71 91 15:02 (89) 07/13/18 Room Air 18:30 Intake and Output 07/15/18 07/15/18 07/16/18 1515:00 23:00 07:00 IntakeIntake Total 1000 ml 400 ml BalanceBalance 1000 ml 400 ml Medications Medications Current Medications IV Flush (NS 3 ml) 3 ml PER PROTOCOL IV ; Start 07/13/18 at 17:00 Ondansetron HCl (Zofran Inj) 4 mg Q6H PRN IV NAUSEA AND/OR VOMITING; Start 07/13/18 at 17:00 Acetaminophen (Tylenol Tab) 650 mg Q6H PRN PO PAIN LEVEL 1-3 OR FEVER; Start 07/13/18 at 17:00 Acetaminophen/ Hydrocodone Bitart ([place] (5/325)) 1 tab Q6H PRN PO PAIN LEVEL 4-6 Last administered on 07/14/18at 01:33; Admin Dose 1 TAB; Start 07/13/18 at 17:00 Paroxetine HCl (Paxil) 40 mg HS PO Last administered on 07/15/18at 20:07; Admin Dose 40 MG; Start 07/13/18 at 21:00 Tamsulosin HCl (Flomax) 0.8 mg HS PO Last administered on 07/15/18at 20:06; Admin Dose 0.8 MG; Start 07/13/18 at 21:00 Labetalol HCl (Labetalol) 10 mg Q4H PRN IV sbp >160; Start 07/13/18 at 17:00 Losartan Potassium (Cozaar) 50 mg DAILY PO Last administered on 07/16/18at 09:06; Admin Dose 50 MG; Start 07/14/18 at 09:00 Guaifenesin/ Dextromethorphan (Mucinex Dm) 1 tab BID PO Last administered on 07/16/18at 09:06; Admin Dose 1 TAB; Start 07/14/18 at 14:30 Albuterol (Ventolin Hfa) 2 puff Q4H RESP THERAPY PRN INH SHORTNESS OF BREATH; Start 07/14/18 at 14:30 Guaifenesin/ Dextromethorphan (Robitussin Dm Liquid Cup) 10 ml Q4H PRN PO COUGH; Start 07/14/18 at 14:30 Enoxaparin Sodium (Lovenox) 40 mg DAILY SC Last administered on 07/16/18at 09:29; Admin Dose 40 MG; Start 07/16/18 at 09:00 DENNY SHORT NP Jul 16, 2018 15:13
--- NOTE | 2018-07-16 15:44 | CONS ---
Assessment/Plan Assessment/Plan Hospital Course 83 yo M with hx of repeated syncopal episodes and other comorbidities who presents following a witnessed episode of a transient loss of consciousness... for which neurology is consulted. Clinically consistent with syncope. Seizure is additionally considered, though less likely. MRI brain is without acute intracranial pathology. EEG is without epileptiform activity P: Await orthostatics Cont workup and medical management per primary Reorient as necessary Limit sedating medications where possible PT/OT as tolerated Will follow clinically Result Diagram: 07/16/18 0453 07/16/18 045 Results 24hrs Laboratory Tests Test 07/16/18 04:53 White Blood Count 5.9 Red Blood Count 4.57 L Hemoglobin 11.8 L Hematocrit 38.1 L Mean Corpuscular Volume 83.4 Mean Corpuscular Hemoglobin 25.8 L Mean Corpuscular Hemoglobin Concent 31.0 L Red Cell Distribution Width 18.2 H Platelet Count 169 Mean Platelet Volume 11.9 H Immature Granulocytes % 0.300 Neutrophils % 67.5 Lymphocytes % 14.0 L Monocytes % 14.2 H Eosinophils % 3.7 Basophils % 0.3 Nucleated Red Blood Cells % 0.0 Immature Granulocytes # 0.020 Neutrophils # 4.0 Lymphocytes # 0.8 Monocytes # 0.8 Eosinophils # 0.2 Basophils # 0.0 Nucleated Red Blood Cells # 0.0 Sodium Level 141 Potassium Level 3.9 Chloride Level 107 Carbon Dioxide Level 26 Anion Gap 8 Blood Urea Nitrogen 18 Creatinine 0.92 Est Glomerular Filtrat Rate mL/min Glucose Level 107 Calcium Level 9.0 Phosphorus Level 3.4 Magnesium Level 2.0 Consultation Date/Type/Reason Admit Date/Time Jul 16, 2018 at 14:58 Type of Consult Neurology Reason for Consultation syncope Requesting Provider: ELIJAH ROBERT Date/Time of Note DATE: 07/16/18 TIME: 15:43 24 HR Interval Summary Free Text/Dictation Continues telemetry monitoring. Pt states that he is doing okay and is without complaints at this time. Exam Vital Signs Vitals Vital Signs Date Temp Pulse Resp B/P (MAP) Pulse Ox O2 O2 Flow FiO2 Time Delivery Rate 07/16/18 98.4 77 18 126/71 91 15:02 (89) 07/13/18 Room Air 18:30 Intake and Output 07/15/18 07/15/18 07/16/18 1414:59 22:59 06:59 IntakeIntake Total 1000 ml 400 ml BalanceBalance 1000 ml 400 ml Exam PE: Gen Appearance: No Apparent Distress HEENT: Normocephalic Cardiovascular: Regular rate Abdomen: Soft Extremities: Dry NE: The patient was alert and oriented. Language was normal. Fund of knowledge was adequate. Pupils were equal and reactive to light. There was no afferent pupillary defect. Visual gayle were normal. Funduscopic examination was limited. Extra-ocular movements were full. Ptosis was absent. There was no nystagmus. Facial sensation was normal. Face was symmetric with normal strength. Hearing was intact. Palate movements were normal. Neck strength was normal. There was normal tongue bulk and speed of movement. Tone was normal. Muscle bulk was normal. I did not see fasciculations. Arms and legs were antigravity. Vibration sensation was normal. Temperature and pinprick sensation was normal. Rapid alternating movements were normal. There was no dysmetria. There was no intention tremor. Gait was deferred due to bedrest. Arm and leg reflexes were 2+ and symmetric. Michaud's sign was absent. Plantar responses were flexor. NETTIE PATIÑO NP Jul 16, 2018 15:43 TREVIN GRAFF Jul 16, 2018 17:54
--- NOTE | 2018-07-16 15:53 | CONS ---
Date/Time of Note Date/Time of Note DATE: 07/16/18 TIME: 15:52 Assessment/Plan Assessment/Plan Hospital Course 1. Syncope : etiology unclear. so far no evidence of arrhythmia on tele and pt with normal EF. Neuro work up is pending will order carotid u/s Follow-up with neurology recommendation 2. HTN: Controlled. 3. BPH: WILL defer to IM 4. Depression: will defer to IM THANK YOU RUBEN WRIGHT MD [facility] Result Diagram: 07/16/18 0453 07/16/18 0453 Results 24hrs Laboratory Tests Test 07/16/18 04:53 White Blood Count 5.9 Red Blood Count 4.57 L Hemoglobin 11.8 L Hematocrit 38.1 L Mean Corpuscular Volume 83.4 Mean Corpuscular Hemoglobin 25.8 L Mean Corpuscular Hemoglobin Concent 31.0 L Red Cell Distribution Width 18.2 H Platelet Count 169 Mean Platelet Volume 11.9 H Immature Granulocytes % 0.300 Neutrophils % 67.5 Lymphocytes % 14.0 L Monocytes % 14.2 H Eosinophils % 3.7 Basophils % 0.3 Nucleated Red Blood Cells % 0.0 Immature Granulocytes # 0.020 Neutrophils # 4.0 Lymphocytes # 0.8 Monocytes # 0.8 Eosinophils # 0.2 Basophils # 0.0 Nucleated Red Blood Cells # 0.0 Sodium Level 141 Potassium Level 3.9 Chloride Level 107 Carbon Dioxide Level 26 Anion Gap 8 Blood Urea Nitrogen 18 Creatinine 0.92 Est Glomerular Filtrat Rate mL/min Glucose Level 107 Calcium Level 9.0 Phosphorus Level 3.4 Magnesium Level 2.0 Consultation Date/Type/Reason Admit Date/Time Jul 16, 2018 at 14:58 Date of Consultation: Jul 16, 2018 Type of Consult CV Reason for Consultation SYNCOPE Requesting Provider: DENNY SHORT NP Hx of Present Illness Interventional cardiology consultation note Chief complaint: Syncope Reason for consult: Syncope History of present illness: Thank you for this referral. History was obtained from the patient review of the chart discussion with the physician and staff. This is a pleasant 83-year-old Portuguese gentleman who was brought into the hospital because of a syncopal episode. Patient reports to me that he was sitting in a chair watching TV when he felt dizzy and passed out probably for about 5 seconds. Patient denies any chest pain or pressure to me denies any palpitation to me denies any history of previous syncope to me. Since admission he has been on the telemetry and so far no evidence of significant arrhythmia is reported are noted. Patient is feeling better now Allergies: No known drug allergies Medications were reviewed as per medical reconciliation sheet Family history: Denies any history of any coronary artery disease Social history: Quit smoking many years ago Past medical history: Hypertension, BPH, depression Review of system: Patient denies all others except for above-mentioned Past Medical History Medications Current Medications IV Flush (NS 3 ml) 3 ml PER PROTOCOL IV ; Start 07/13/18 at 17:00 Ondansetron HCl (Zofran Inj) 4 mg Q6H PRN IV NAUSEA AND/OR VOMITING; Start 07/13/18 at 17:00 Acetaminophen (Tylenol Tab) 650 mg Q6H PRN PO PAIN LEVEL 1-3 OR FEVER; Start 07/13/18 at 17:00 Acetaminophen/ Hydrocodone Bitart ([place] (5/325)) 1 tab Q6H PRN PO PAIN LEVEL 4-6 Last administered on 07/14/18at 01:33; Admin Dose 1 TAB; Start 07/13/18 at 17:00 Paroxetine HCl (Paxil) 40 mg HS PO Last administered on 07/15/18at 20:07; Admin Dose 40 MG; Start 07/13/18 at 21:00 Tamsulosin HCl (Flomax) 0.8 mg HS PO Last administered on 07/15/18at 20:06; Admin Dose 0.8 MG; Start 07/13/18 at 21:00 Labetalol HCl (Labetalol) 10 mg Q4H PRN IV sbp >160; Start 07/13/18 at 17:00 Losartan Potassium (Cozaar) 50 mg DAILY PO Last administered on 07/16/18at 09:06; Admin Dose 50 MG; Start 07/14/18 at 09:00 Guaifenesin/ Dextromethorphan (Mucinex Dm) 1 tab BID PO Last administered on 07/16/18 09:06; Admin Dose 1 TAB; Start 07/14/18 at 14:30 Albuterol (Ventolin Hfa) 2 puff Q4H RESP THERAPY PRN INH SHORTNESS OF BREATH; Start 07/14/18 at 14:30 Guaifenesin/ Dextromethorphan (Robitussin Dm Liquid Cup) 10 ml Q4H PRN PO COUGH; Start 07/14/18 at 14:30 Enoxaparin Sodium (Lovenox) 40 mg DAILY SC Last administered on 07/16/18at 09:29; Admin Dose 40 MG; Start 07/16/18 at 09:00 Allergies: Coded Allergies: No Known Allergy (Unverified , 04/29/18) Past Surgical History Past Surgical Hx: no surgical history Social History Smoking Status: Former smoker Exam/Review of Systems Vital Signs Vitals Vital Signs Date Temp Pulse Resp B/P (MAP) Pulse Ox O2 O2 Flow FiO2 Time Delivery Rate 07/16/18 98.4 77 18 126/71 91 15:02 (89) 07/13/18 Room Air 18:30 Intake and Output 07/15/18 07/15/18 07/16/18 1414:59 22:59 06:59 IntakeIntake Total 1000 ml 400 ml BalanceBalance 1000 ml 400 ml Exam General: no acute distress HEENT: NC/AT. pupils are equal. round. NECK: NO JVD. no stridor. CV: RRR. systolic murmur; no gallop or rubs. PULM: no wheezing or rhonchi. GI: SOFT, NT, ND, no rebound or guarding Extremity: trace B/L LE edema. no clubbing. neuro: awake and alert, OX3. Psych: calm and pleasant rectal: deferred : normal EKG normal sinus rhythm normal ECG Echocardiogram was personally reviewed which shows: Normal left ventricular systolic function. Normal left ventricular cavity size. Mild hypertrophy of the basal septum. Ejection fraction is visually estimated at 65 %. Tissue Doppler/Mitral Doppler indices are consistent with impaired relaxation (Stage I diastolic dysfunction). E/E`=12. No significant aortic stenosis or insufficiency. Aortic cusps appear mildly calcified. Left coronary cusp appears moderately calcified. Trileaflet aortic valve. Trace aortic valve regurgitation. Normal appearance of the tricuspid valve. Estimated peak PA systolic pressure 37 mmHg. There is trace to mild tricuspid regurgitation. Normal appearance of the mitral valve. Trace mitral regurgitation. MRI of the brain shows: IMPRESSION: 1. The intracranial contents are without significant interval change compared to the patient's prior MRI study from July 31, 2017. 2. Mild diffuse atrophy. 3. Microangiopathic ischemic changes. 4. Mild mucosal thickening right ethmoid air cells. Medications Medications Current Medications IV Flush (NS 3 ml) 3 ml PER PROTOCOL IV ; Start 07/13/18 at 17:00 Ondansetron HCl (Zofran Inj) 4 mg Q6H PRN IV NAUSEA AND/OR VOMITING; Start 07/13/18 at 17:00 Acetaminophen (Tylenol Tab) 650 mg Q6H PRN PO PAIN LEVEL 1-3 OR FEVER; Start 07/13/18 at 17:00 Acetaminophen/ Hydrocodone Bitart ([place] (5/325)) 1 tab Q6H PRN PO PAIN LEVEL 4-6 Last administered on 07/14/18 01:33; Admin Dose 1 TAB; Start 07/13/18 at 17:0 0 Paroxetine HCl (Paxil) 40 mg HS PO Last administered on 07/15/18at 20:07; Admin Dose 40 MG; Start 07/13/18 at 21:00 Tamsulosin HCl (Flomax) 0.8 mg HS PO Last administered on 07/15/18 20:06; Admin Dose 0.8 MG; Start 07/13/18 at 21:00 Labetalol HCl (Labetalol) 10 mg Q4H PRN IV sbp >160; Start 07/13/18 at 17:00 Losartan Potassium (Cozaar) 50 mg DAILY PO Last administered on 07/16/18 09:06; Admin Dose 50 MG; Start 07/14/18 at 09:00 Guaifenesin/ Dextromethorphan (Mucinex Dm) 1 tab BID PO Last administered on 07/16/18 09:06; Admin Dose 1 TAB; Start 07/14/18 at 14:30 Albuterol (Ventolin Hfa) 2 puff Q4H RESP THERAPY PRN INH SHORTNESS OF BREATH; Start 07/14/18 at 14:30 Guaifenesin/ Dextromethorphan (Robitussin Dm Liquid Cup) 10 ml Q4H PRN PO COUGH; Start 07/14/18 at 14:30 Enoxaparin Sodium (Lovenox) 40 mg DAILY SC Last administered on 07/16/18 09:29; Admin Dose 40 MG; Start 07/16/18 at 09:00 RUBEN WRIGHT MD Jul 16, 2018 15:53
[2018-07-16] MEDS: TAMSULOSIN (SR) 0.4 MG CAP PO SCH (20:16)
[2018-07-16] MEDS: PAROXETINE 20 MG TAB PO SCH (20:17)
[2018-07-17] VITALS (8 sets, daily range): BP systolic 111–143; BP diastolic 59–68; PULSE 67–82; RESP 18
[2018-07-17] MEDS: LOSARTAN 50 MG TAB PO SCH (07:47)
[2018-07-17] MEDS: GUAIFENESIN/DM (SR) TAB PO SCH (07:47)
[2018-07-17] MEDS: ENOXAPARIN 40 MG/0.4 ML SYG SC SCH (07:58)
--- NOTE | 2018-07-17 08:46 | CONS ---
Date/Time of Note Date/Time of Note DATE: 07/17/18 TIME: 08:44 Consult Date/Type/Reason Admit Date/Time Jul 16, 2018 at 14:58 Initial Consult Date 07/16/18 Type of Consultation: CV Requesting Provider: DENNY SHORT NP Subjective CARDIOLOGY FOLLOW UP NOTE S: Dw staff and tele was reviewed. pt remains in NSR. no significant arrhythmia over night no chest pain or pressure no syncope or presyncope no PND orthopnea O General: no acute distress HEENT: NC/AT. pupils are equal. round. NECK: NO JVD. no stridor. CV: RRR. systolic murmur; no gallop or rubs. PULM: no wheezing or rhonchi. GI: SOFT, NT, ND, no rebound or guarding Extremity: trace B/L LE edema. no clubbing. neuro: awake and alert, OX3. Psych: calm and pleasant rectal: deferred : normal EKG normal sinus rhythm normal ECG Echocardiogram was personally reviewed which shows: Normal left ventricular systolic function. Normal left ventricular cavity size. Mild hypertrophy of the basal septum. Ejection fraction is visually estimated at 65 %. Tissue Doppler/Mitral Doppler indices are consistent with impaired relaxation (Stage I diastolic dysfunction). E/E`=12. No significant aortic stenosis or insufficiency. Aortic cusps appear mildly calcified. Left coronary cusp appears moderately calcified. Trileaflet aortic valve. Trace aortic valve regurgitation. Normal appearance of the tricuspid valve. Estimated peak PA systolic pressure 37 mmHg. There is trace to mild tricuspid regurgitation. Normal appearance of the mitral valve. Trace mitral regurgitation. MRI of the brain shows: IMPRESSION: 1. The intracranial contents are without significant interval change compared to the patient's prior MRI study from July 31, 2017. 2. Mild diffuse atrophy. 3. Microangiopathic ischemic changes. 4. Mild mucosal thickening right ethmoid air cells. CAROTID U.S No evidence for hemodynamically significant stenosis in the bilateral internal carotid arteries - validated velocity measurements with angiographic measurements, velocity criteria are extrapolated from diameter data as defined by the Society of Radiologists in Ultrasound Consensus Conference Radiology 2003; 229;340-346. This study does indirectly reference the measurement of the distal ICA diameter as the denominator for stenosis measurement. Objective Vital Signs Date Temp Pulse Resp B/P (MAP) Pulse Ox O2 O2 Flow FiO2 Time Delivery Rate 07/17/18 97.8 73 18 111/59 94 Room Air 07:05 (76) Intake and Output 07/16/18 07/16/18 07/17/18 1515:00 23:00 07:00 IntakeIntake Total 500 ml 500 ml BalanceBalance 500 ml 500 ml Results/Medications Result Diagram: 07/17/18 0423 07/17/18 0423 Results 24 hrs Laboratory Tests Test 07/17/18 04:23 White Blood Count 5.5 Red Blood Count 4.54 L Hemoglobin 11.8 L Hematocrit 38.1 L Mean Corpuscular Volume 83.9 Mean Corpuscular Hemoglobin 26.0 L Mean Corpuscular Hemoglobin Concent 31.0 L Red Cell Distribution Width 18.0 H Platelet Count 179 Mean Platelet Volume 11.4 H Immature Granulocytes % 0.600 H Neutrophils % 62.3 Lymphocytes % 16.9 Monocytes % 15.4 H Eosinophils % 4.2 Basophils % 0.6 Nucleated Red Blood Cells % 0.0 Immature Granulocytes # 0.030 Neutrophils # 3.4 Lymphocytes # 0.9 Monocytes # 0.8 Eosinophils # 0.2 Basophils # 0.0 Nucleated Red Blood Cells # 0.0 Sodium Level 142 Potassium Level 3.8 Chloride Level 105 Carbon Dioxide Level 28 Anion Gap 9 Blood Urea Nitrogen 21 H Creatinine 0.94 Est Glomerular Filtrat Rate mL/min Glucose Level 103 Calcium Level 8.9 Phosphorus Level 3.2 Magnesium Level 2.1 Triglycerides Level 174 H Cholesterol Level 126 LDL Cholesterol, Calculated 57 HDL Cholesterol 34 Cholesterol/HDL Ratio 3.7 Thyroid Stimulating Hormone (TSH) 0.307 L Free Thyroxine 0.88 Medications Current Medications IV Flush (NS 3 ml) 3 ml PER PROTOCOL IV ; Start 07/13/18 at 17:00 Ondansetron HCl (Zofran Inj) 4 mg Q6H PRN IV NAUSEA AND/OR VOMITING; Start 07/13 at 17:00 Acetaminophen (Tylenol Tab) 650 mg Q6H PRN PO PAIN LEVEL 1-3 OR FEVER; Start 07/13/18 at 17:00 Acetaminophen/ Hydrocodone Bitart ([place] (5/325)) 1 tab Q6H PRN PO PAIN LEVEL 4-6 Last administered on 07/14/18at 01:33; Admin Dose 1 TAB; Start 07/13/18 at 17:00 Paroxetine HCl (Paxil) 40 mg HS PO Last administered on 07/16/18 20:17; Admin Dose 40 MG; Start 07/13/18 at 21:00 Tamsulosin HCl (Flomax) 0.8 mg HS PO Last administered on 07/16/18 20:16; Admin Dose 0.8 MG; Start 07/13/18 at 21:00 Labetalol HCl (Labetalol) 10 mg Q4H PRN IV sbp >160; Start 07/13/18 at 17:00 Losartan Potassium (Cozaar) 50 mg DAILY PO Last administered on 07/17/18at 07:47; Admin Dose 50 MG; Start 07/14/18 at 09:00 Guaifenesin/ Dextromethorphan (Mucinex Dm) 1 tab BID PO Last administered on 07/17/18 07:47; Admin Dose 1 TAB; Start 07/14/18 at 14:30 Albuterol (Ventolin Hfa) 2 puff Q4H RESP THERAPY PRN INH SHORTNESS OF BREATH; Start 07/14/18 at 14:30 Guaifenesin/ Dextromethorphan (Robitussin Dm Liquid Cup) 10 ml Q4H PRN PO COUGH; Start 07/14/18 at 14:30 Enoxaparin Sodium (Lovenox) 40 mg DAILY SC Last administered on 07/17/18 07:58; Admin Dose 40 MG; Start 07/16/18 at 09:00 Assessment/Plan Chief Complaint/Hosp Course 1. Syncope : etiology unclear. no evidence of arrhythmia on tele and pt with normal EF. Follow-up with neurology recommendation 2. HTN: Controlled. 3. BPH: WILL defer to IM 4. Depression: will defer to IM DC planning when ok with neurology THANK YOU RUBEN WRIGHT MD [facility] RUBEN WRIGHT MD Jul 17, 2018 08:46
--- NOTE | 2018-07-17 13:49 | CONS ---
Assessment/Plan Assessment/Plan Hospital Course 83 yo M with hx of repeated syncopal episodes and other comorbidities who presents following a witnessed episode of a transient loss of consciousness... for which neurology is consulted. Clinically consistent with syncope. Seizure is additionally considered, though less likely. MRI brain is without acute intracranial pathology. EEG is without epileptiform activity P: Cont workup and medical management per primary Reorient as necessary Limit sedating medications where possible PT/OT as tolerated Will follow clinically Result Diagram: 07/17/18 0423 07/17/18 0423 Results 24hrs Laboratory Tests Test 07/17/18 04:23 White Blood Count 5.5 Red Blood Count 4.54 L Hemoglobin 11.8 L Hematocrit 38.1 L Mean Corpuscular Volume 83.9 Mean Corpuscular Hemoglobin 26.0 L Mean Corpuscular Hemoglobin Concent 31.0 L Red Cell Distribution Width 18.0 H Platelet Count 179 Mean Platelet Volume 11.4 H Immature Granulocytes % 0.600 H Neutrophils % 62.3 Lymphocytes % 16.9 Monocytes % 15.4 H Eosinophils % 4.2 Basophils % 0.6 Nucleated Red Blood Cells % 0.0 Immature Granulocytes # 0.030 Neutrophils # 3.4 Lymphocytes # 0.9 Monocytes # 0.8 Eosinophils # 0.2 Basophils # 0.0 Nucleated Red Blood Cells # 0.0 Sodium Level 142 Potassium Level 3.8 Chloride Level 105 Carbon Dioxide Level 28 Anion Gap 9 Blood Urea Nitrogen 21 H Creatinine 0.94 Est Glomerular Filtrat Rate mL/min Glucose Level 103 Calcium Level 8.9 Phosphorus Level 3.2 Magnesium Level 2.1 Triglycerides Level 174 H Cholesterol Level 126 LDL Cholesterol, Calculated 57 HDL Cholesterol 34 Cholesterol/HDL Ratio 3.7 Thyroid Stimulating Hormone (TSH) 0.307 L Free Thyroxine 0.88 Consultation Date/Type/Reason Admit Date/Time Jul 16, 2018 at 14:58 Type of Consult Neurology Reason for Consultation syncope Requesting Provider: DENNY SHORT NP Date/Time of Note DATE: 07/17/18 TIME: 13:47 24 HR Interval Summary Free Text/Dictation Continues telemetry monitoring. Pt says he's just fine. Exam Vital Signs Vitals Vital Signs Date Temp Pulse Resp B/P (MAP) Pulse Ox O2 O2 Flow FiO2 Time Delivery Rate 07/17/18 82 12:23 07/17/18 97.4 18 138/65 95 Room Air 11:05 (89) Intake and Output 1/8/19 1/8/19 1/9/19 1515:00 23:00 07:00 IntakeIntake Total 500 ml 500 ml BalanceBalance 500 ml 500 ml Exam PE: Gen Appearance: No Apparent Distress HEENT: Normocephalic Cardiovascular: Regular rate Abdomen: Soft Extremities: Dry NE: The patient was alert and oriented. Language was normal. Fund of knowledge was adequate. Pupils were equal and reactive to light. There was no afferent pupillary defect. Visual gayle were normal. Funduscopic examination was limited. Extra-ocular movements were full. Ptosis was absent. There was no nystagmus. Facial sensation was normal. Face was symmetric with normal strength. Hearing was intact. Palate movements were normal. Neck strength was normal. There was normal tongue bulk and speed of movement. Tone was normal. Muscle bulk was normal. I did not see fasciculations. Arms and legs were antigravity. Vibration sensation was normal. Temperature and pinprick sensation was normal. Rapid alternating movements were normal. There was no dysmetria. There was no intention tremor. Gait was deferred due to bedrest. Arm and leg reflexes were 2+ and symmetric. Michaud's sign was absent. Plantar responses were flexor. NETTIE PATIÑO NP Jul 17, 2018 13:49 TREVIN GRAFF Jul 17, 2018 13:59
--- NOTE | 2018-07-17 15:09 | PDOCDIS ---
Discharge Instructions CONDITION [id number] Patient Condition: [id number] Stable HOME CARE INSTRUCTIONS: [id number] Diet Instructions: [id number] Low Fat /Cholesterol [id number] Special Diet: [id number] LOW FAT LOW CHOL FOLLOW UP/APPOINTMENTS Follow-up Plan 1. Follow-up with your primary care physician in 2 weeks. 2. Heather Adler MD Specialty: Neurology Office Address [address] [place] [address]. [address] [place] [address] Office OTHER ORDERS: Other Orders: 1. Resume home medications. Stop taking Vilazodone (Viibryd) along with paroxetine. 2. Take a low-cholesterol diet. 3. Resume activities as tolerated 4. Follow-up with your primary care physician in 2 days. 5. Follow-up with outpatient neurology (Dr. Adler) in 2 weeks. 6. Please go to the nearest emergency room if you have any sudden onset of speech disturbances, focal weakness, or any other unusual signs/symptoms. DENNY SHORT NP Jul 17, 2018 15:09
--- NOTE | 2018-07-17 16:59 | DS ---
Date/Time of Note Date/Time of Note DATE: 07/17/18 TIME: 16:58 Discharge Summary Admission/Discharge Info Admit Date/Time Jul 16, 2018 at 14:58 Discharge Date/Time Discharge Diagnosis 1. Syncope. 2. Essential hypertension. 3. Benign prostatic hypertrophy. 4. Depression. 5. Normocytic anemia. Patient Condition: Stable Consults 1. Heather Adler MD, Neurology. 2. Brice Garner MD, Cardiology. Procedures Brain MRI IMPRESSION: 1. The intracranial contents are without significant interval change compared to the patient's prior MRI study from July 31, 2017. 2. Mild diffuse atrophy. 3. Microangiopathic ischemic changes. 4. Mild mucosal thickening right ethmoid air cells. Carotid Doppler IMPRESSION: No evidence for hemodynamically significant stenosis in the bilateral internal carotid arteries. Brain CT IMPRESSION: Mild age-appropriate atrophy. Minimal white matter disease compatible with chronic small vessel ischemia. No intracranial hemorrhage, mass or evidence of acute transcortical infarct. EEG IMPRESSION: Technically limited by high frequency artifact; no epileptiform discharges are seen. 2D Echocardiogram Conclusions Normal left ventricular systolic function. Normal left ventricular cavity size. Mild hypertrophy of the basal septum. Ejection fraction is visually estimated at 65 %. Tissue Doppler/Mitral Doppler indices are consistent with impaired relaxation (Stage I diastolic dysfunction). E/E`=12. No significant aortic stenosis or insufficiency. Aortic cusps appear mildly calcified. Left coronary cusp appears moderately calcified. Trileaflet aortic valve. Trace aortic valve regurgitation. Normal appearance of the tricuspid valve. Estimated peak PA systolic pressure 37 mmHg. There is trace to mild tricuspid regurgitation. Normal appearance of the mitral valve. Trace mitral regurgitation. Hx of Present Illness This is a 83-year-old male with a past medical history of hypertension, depression, and BPH who came to the, emergency room because he had a syncopal episode. Patient was admitted to inpatient setting for further treatment and evaluation. Hospital Course The etiology of the patient's syncope was extensively evaluated. The patient underwent a brain MRI and brain CT scan that were negative. A neurology consult was obtained. The patient did not have any evidence of significant orthostatic hypotension. The patient underwent electroencephalography that was negative for any epileptiform activities. The patient was also ruled out for any cardiac etiology for his underlying syncope. The patient's 2D echocardiogram was showing preserved left ventricular ejection fraction and no wall motion abnormalities. The patient did not have any evidence of arrhythmias during the time he was in the hospital. The etiology of the patient's recurrent syncopal episode is unclear. However, the patient was noticed to be taking paroxetine, an SSRI along with Vilazodone another SSRI that can increase the risk of serotonin syndrome. It is unclear whether polypharmacy had resulted in the patient's underlying syncopal episodes. Therefore, the patient was instructed to take only one SSRI. The patient's chronic problems include essential hypertension. The patient was maintained on antihypertensives for the same. He was maintained on Flomax for his benign prostatic hypertrophy. The patient was maintained on paroxetine for his underlying depression. The patient was noticed to have normocytic anemia. This could be anemia of chronic disease. The patient's H&H remained stable throughout the hospital course. The patient was also evaluated by physical therapy and occupational therapy. Physical therapy recommended no further physical therapy. Occupational therapy recommended no skilled OT services. The patient was being followed by home health agency prior to this hospitalization. The patient's family requested resumption of home health upon discharge. Therefore, home health order was put in for home safety and home PT evaluation. The patient had a stable hospital course. The patient is stable to be discharged home, to be followed up with outpatient neurologist and resaw feeder. Discharge Instructions 1. Resume home medications. Stop taking Vilazodone (Viibryd) along with paroxetine. 2. Take a low-cholesterol diet. 3. Resume activities as tolerated 4. Follow-up with your primary care physician in 2 days. 5. Follow-up with outpatient neurology (Dr. Adler) in 2 weeks. 6. Please go to the nearest emergency room if you have any sudden onset of speech disturbances, focal weakness, or any other unusual signs/symptoms. The patient verbalized understanding of his discharge instructions. At this time I would like to thank all the consultants for seeing the patient and providing clinical recommendations. The patient was seen in collaboration with Dr. Gallego. Home Meds Reported Medications Olmesartan Medoxomil (Benicar) 20 Mg Tablet, 20 MG PO DAILY, #30 TAB 04/24/18 Paroxetine Hcl* (Paroxetine*) 40 Mg Tablet, 40 MG PO HS, TAB 04/24/18 Tamsulosin Hcl* (Tamsulosin Hcl*) 0.4 Mg Cap.er.24h, 0.8 MG PO HS, CAP 04/24/18 Amlodipine Besylate* (Norvasc*) 5 Mg Tablet, 5 MG PO DAILY PRN for NEEDED, TAB 04/24/18 Discontinued Reported Medications Vilazodone Hcl (Viibryd) 20 Mg Tablet, 20 MG PO DAILY, TAB 04/24/18 Discontinued Scripts Ibuprofen* (Ibuprofen*) 600 Mg Tablet, 600 MG PO Q6H PRN for PAIN LEVEL 1-3, #30 TAB Prov:SHEA SCHULTZ 05/03/18 Follow-up Plan 1. Follow-up with your primary care physician in 2 weeks. 2. Heather Adler MD Specialty: Neurology Office Address [id number] [place] [address]. [address] [place] [address] Office Primary Care Provider Not On Staff Doctor Time spent on discharge: > 30 minutes Pending Labs Laboratory Tests Test 07/17/18 04:23 White Blood Count 5.5 10^3/ul (4.8-10.8) Red Blood Count 4.54 10^6/ul (4.70-6.10) Hemoglobin 11.8 g/dl (14.0-18.0) Hematocrit 38.1 % (42.0-52.0) Mean Corpuscular Volume 83.9 fl (82.0-101.0) Mean Corpuscular Hemoglobin 26.0 pg (29.0-33.0) Mean Corpuscular Hemoglobin Concent 31.0 g/dl (32.0-37.0) Red Cell Distribution Width 18.0 % (11.5-14.5) Platelet Count 179 10^3/UL (140-415) Mean Platelet Volume 11.4 fl (7.4-10.4) Immature Granulocytes % 0.600 % (0.001-0.429) Neutrophils % 62.3 % (39.0-77.0) Lymphocytes % 16.9 % (15.0-51.0) Monocytes % 15.4 % (0.0-11.0) Eosinophils % 4.2 % (0.0-7.0) Basophils % 0.6 % (0.0-2.0) Nucleated Red Blood Cells % 0.0 /100WBC (0.0-0.0) Immature Granulocytes # 0.030 10^3/ul (0.0-0.031) Neutrophils # 3.4 10^3/ul (1.6-7.5) Lymphocytes # 0.9 10^3/ul (0.8-2.9) Monocytes # 0.8 10^3/ul (0.3-0.9) Eosinophils # 0.2 10^3/ul (0.0-0.5) Basophils # 0.0 10^3/ul (0.0-0.1) Nucleated Red Blood Cells # 0.0 10^3/ul (0.0-0.0) Sodium Level 142 mmol/L (135-144) Potassium Level 3.8 mmol/L (3.5-5.1) Chloride Level 105 mmol/L (97-110) Carbon Dioxide Level 28 mmol/L (21-31) Anion Gap 9 (5-13) Blood Urea Nitrogen 21 mg/dl (7-20) Creatinine 0.94 mg/dl (0.61-1.24) Est Glomerular Filtrat Rate mL/min mL/min (>60) Glucose Level 103 mg/dl (70-220) Calcium Level 8.9 mg/dl (8.4-10.2) Phosphorus Level 3.2 mg/dl (2.5-4.9) Magnesium Level 2.1 mg/dl (1.7-2.5) Triglycerides Level 174 mg/dl (0-149) Cholesterol Level 126 mg/dl (100-200) LDL Cholesterol, Calculated 57 mg/dl HDL Cholesterol 34 mg/dl (31-75) Cholesterol/HDL Ratio 3.7 RATIO Thyroid Stimulating Hormone (TSH) 0.307 MIU/L (0.465-4.680) Free Thyroxine 0.88 ng/dl (0.85-1.93) DENNY SHORT NP Jul 17, 2018 16:59
== END 2018-07-17 17:14 | disposition home health service (06) | DRG 312 ==
LOC: E/R 13:41 → 6WM 16:53 → OBSVTOIN 07-16 14:58
PROVIDERS: ADMIT Internal Medicine; ATTEND Internal Medicine
DX: R55 Syncope and collapse (principal); I10 Essential (primary) hypertension; N40.0 Benign prostatic hyperplasia without lower urinary tract symptoms; F32.9 Major depressive disorder, single episode, unspecified; D64.9 Anemia, unspecified
CPT/HCPCS: 36415; 70450; 70551; 71045; 80048; 80053; 80061; 81001; 82270; 82728; 83036; 83540; 83735; 84100; 84439; 84443; 84484; 85025; 85610; 87400; 93005; 93306; 93880; 95819; 97161; 97166; G0378; J1650; J7030